=== PATIENT | female | born 1940 | race Caucasian/White ===

== ENCOUNTER 2017-06-22 14:49 | Day surgery (SDC) | payer OTHER ==
[~2017-06-22 14:49] MED LIST: ALPR.25 PO; Augmentin 500-1 EACH PO; Augmentin 875-1 EACH PO; Augmentin600 MG/5 M PO; FENT25TP TOP; FENT50TP TOP; FENT75TP TOP; FENTANYL1 EAC1 TOP; LISI10 PO; MIRT15 PO; NAUSEA MED; ONDA8 PO; OXYACE5T PO; OXYC10ER PO; Percocet 10-321 EACH PO; ROXICODONE5 MG PO; SIMV10 PO; TRIHYD253A PO; Zofran Odt8 MG SL
[2017-07-04] MEDS ORDERED: [UNRECOGNIZED DRUG - REMARK] PO (09:26)
== END 2017-06-22 23:05 | disposition home or self-care (01) ==
LOC: US 14:49
PROC: 0W9G3ZZ Drainage of Peritoneal Cavity, Percutaneous Approach (ICD-10-PCS; principal; 2017-06-22)
DX: C50.811 Malignant neoplasm of overlapping sites of right female breast (principal); G89.3 Neoplasm related pain (acute) (chronic); C78.01 Secondary malignant neoplasm of right lung; C79.51 Secondary malignant neoplasm of bone; R18.0 Malignant ascites; N17.9 Acute kidney failure, unspecified; Z17.0 Estrogen receptor positive status [ER+]
CPT/HCPCS: 49083

== ENCOUNTER 2017-06-29 14:49 | Day surgery (SDC) | payer OTHER ==
[2017-07-04] MEDS ORDERED: [UNRECOGNIZED DRUG - REMARK] PO (09:26)
== END 2017-06-29 23:00 | disposition home or self-care (01) ==
LOC: US 14:49
PROC: 0W9G3ZZ Drainage of Peritoneal Cavity, Percutaneous Approach (ICD-10-PCS; principal; 2017-06-29)
DX: R18.8 Other ascites (principal)
CPT/HCPCS: 49083